=== PATIENT | female | born 1980 | race American Indian/Alaskan Native ===

== ENCOUNTER 2017-12-31 20:11 | Emergency (ER) | payer OTHER ==
[2017-12-31] MEDS ORDERED: Alum-Mag Hydrox-Simethicone Susp (30 mL) PO STA (20:51)
[2017-12-31 20:56] LABS: BASO # 0.1 K/uL (0.0-0.2); BASO % 1.7 % (0.0-2.0); EOS # 0.7 K/uL (0.0-0.7); HEMOGLOBIN 10.3 g/dL (11.0-16.0); LYMPH # 3.7 K/uL (1.0-4.3); LYMPH % 42.6 % (20.0-40.0); MEAN CELL VOLUME 74.2 fL (81.0-99.0); MEAN CORPUSCULAR HEMOGLOBIN 23.9 pg (27.0-31.0); MEAN CORPUSCULAR HGB CONC 32.3 g/dL (33.0-37.0); MEAN PLATELET VOLUME 8.3 fL (7.2-11.7); MONO # 0.6 K/uL (0.0-0.8); NEUT # 3.5 K/uL (1.8-7.0); NEUT % 40.7 % (50.0-75.0); RBC 4.3 Mil/uL (3.80-5.20); RED CELL DISTRIBUTION WIDTH 16.3 % (11.5-14.5); WHITE BLOOD COUNT 8.7 K/uL (4.8-10.8)
[2017-12-31] MEDS ORDERED: Alum-Mag Hydrox-Simethicone Susp (30 mL) ONE (20:57)
[2017-12-31 21:06] LABS: ALBUMIN 4.5 g/dL (3.5-5.0); ALT/SGPT 23 U/L (9-52); AST/SGOT 25 U/L (14-36); BLOOD UREA NITROGEN 12 mg/dL (7-17); CALCIUM 9.2 mg/dl (8.6-10.4); GFR AFRICAN-AMERICAN > 60; GFR NON-AFRICAN AMERICAN > 60; LIPASE 95 U/L (23-300)
[2017-12-31 21:10] LABS: BARBITURATES, UR NEGATIVE (NEGATIVE); BENZODIAZEPINES, UR NEGATIVE (NEGATIVE); OPIATES, UR NEGATIVE (NEGATIVE); PHENCYCLIDINE, UR NEGATIVE (NEGATIVE)
--- NOTE | 2017-12-31 21:46 | C.PDOC ---
Time Seen by Provider: 12/31/17 20:25 Chief Complaint (Nursing): Palpitations History Per: Patient Onset/Duration Of Symptoms: Hrs (since this morning), Intermittent Episodes Current Symptoms Are (Timing): Still Present Quality Of Symptoms: Extra Beats Severity: Moderate Exacerbating Factor(s): Pos: Injestion Of Caffeinated Beverages Additional History Per: Prior Records Past Medical History Reviewed: Historical Data, Nursing Documentation, Vital Signs Vital Signs: Last Vital Signs Temp 98.6 F 12/31/17 20:21 Pulse 86 12/31/17 20:21 Resp 18 12/31/17 20:21 BP 103/70 12/31/17 20:21 Pulse Ox 99 12/31/17 20:21 - Medical History PMH: Asthma Family History: States: Unknown Family Hx - Social History Hx Tobacco Use: No Hx Alcohol Use: No Hx Substance Use: No - Immunization History Hx Tetanus Toxoid Vaccination: No Hx Influenza Vaccination: No Hx Pneumococcal Vaccination: No Review Of Systems Except As Marked, All Systems Reviewed And Found Negative. Constitutional: Negative for: Fever, Weakness Cardiovascular: Positive for: Palpitations. Negative for: Chest Pain Respiratory: Negative for: Shortness of Breath, Hemoptysis Gastrointestinal: Negative for: Vomiting, Abdominal Pain Musculoskeletal: Negative for: Neck Pain, Back Pain, Leg Pain Skin: Negative for: Rash Neurological: Negative for: Weakness, Numbness Physical Exam - Physical Exam Appears: Non-toxic, No Acute Distress Skin: Normal Color, Warm, Dry, No Rash Head: Atraumatic, Normacephalic Eye(s): bilateral: Normal Inspection, PERRL, EOMI Neck: Normal ROM, Supple Cardiovascular: Rhythm Regular Respiratory: No Accessory Muscle Use, Wheezing (scattered intermittent) Gastrointestinal/Abdominal: Soft, No Tenderness Back: No CVA Tenderness Extremity: Normal ROM, No Pedal Edema, No Calf Tenderness Neurological/Psych: Oriented x3, Normal Motor, Normal Sensation ED Course And Treatment - Laboratory Results Result Diagrams: 12/31/17 20:51 12/31/17 20:51 Urine POC: Negative ECG: Interpreted By Me, Viewed By Me ECG Rhythm: Sinus Rhythm ECG Interpretation: No Acute Changes Rate From EC O2 Sat by Pulse Oximetry: 99 Pulse Ox Interpretation: Normal - Radiology CXR: Interpreted by Me, Viewed By Me CXR Interpretation: Yes: No Acute Disease Progress Note: Pt still feels the symptom even though monitor shows NSR. Pt appears to be having muscle twitch in the left lower chest wall area. Pt states she has not been taking her Singulair, but has been using her Albuterol pump more often. On re-exam, lungs clear. Disposition Counseled Patient/Family Regarding: Studies Performed, Diagnosis, Need For Followup - Disposition Disposition: HOME/ ROUTINE Disposition Time: 21:48 Condition: IMPROVED Additional Instructions: Take your Singulair as daily. Follow up with your doctor in 2 days as scheduled. Return to the ER if you develop chest pain, shortness of breath, dizziness, worsening of symptoms or if you have any other concerns. Instructions: Palpitations (DC) Forms: [facility] ([place]inese) - Clinical Impression Clinical Impression: Palpitations
[2017-12-31 22:00] VITALS: BP 111/75; PULSE 74; RESP 16; TEMP 97.5; O2SAT 98
--- NOTE | 2018-01-01 09:32 | RAD ---
HISTORY: Palpitations COMPARISON: No prior. FINDINGS: LUNGS: No active pulmonary disease. PLEURA: No significant pleural effusion identified, no pneumothorax apparent. CARDIOVASCULAR: Normal. OSSEOUS STRUCTURES: No significant abnormalities. VISUALIZED UPPER ABDOMEN: Normal. OTHER FINDINGS: None. IMPRESSION: No active disease.
--- NOTE | 2018-01-01 16:36 | CARD ---
APPROVED REPORT EKG Measurement Heart [id number] <Conclusion> Normal sinus rhythm Normal ECG
== END 2017-12-31 21:59 | disposition home or self-care (01) ==
LOC: C.ER 20:11
DX: R00.2 Palpitations (principal)

== ENCOUNTER 2018-03-13 14:23 | Emergency (ER) | payer OTHER ==
[2018-03-13 14:35] VITALS: RESP 20; TEMP 98.2
[2018-03-13 16:49] LABS: HCG,QUALITATIVE URINE NEGATIVE (NEGATIVE)
[2018-03-13 16:54] LABS: SQUAMOUS EPITHIAL 12 /hpf (0-5); URINE BACTERIA OCC (<OCC); URINE BILIRUBIN NEGATIVE (NEGATIVE); URINE BLOOD 2+ (NEGATIVE); URINE CLARITY Hazy (Clear); URINE COLOR Yellow (YELLOW); URINE GLUCOSE (UA) NORMAL (Normal); URINE LEUKOCYTE ESTERASE TRACE Leu/uL (Negative); URINE PROTEIN NEGATIVE (NEGATIVE); URINE UROBILINOGEN NORMAL mg/dL (0.2-1.0)
[2018-03-13] MEDS ORDERED: Sodium Chloride 0.9% 500 ML IV ONE (17:06)
[2018-03-13 17:38] LABS: BASO % 0.5 % (0.0-2.0); EOS # 0.4 K/uL (0.0-0.7); EOS % 4.2 % (0.0-4.0); HEMOGLOBIN 10.5 g/dL (11.0-16.0); LYMPH # 3.1 K/uL (1.0-4.3); LYMPH % 36.9 % (20.0-40.0); MEAN CELL VOLUME 73.2 fL (81.0-99.0); MEAN CORPUSCULAR HEMOGLOBIN 23.6 pg (27.0-31.0); MEAN CORPUSCULAR HGB CONC 32.3 g/dL (33.0-37.0); MEAN PLATELET VOLUME 7.5 fL (7.2-11.7); MONO # 0.6 K/uL (0.0-0.8); MONO % 7.6 % (0.0-10.0); NEUT # 4.3 K/uL (1.8-7.0); NEUT % 50.8 % (50.0-75.0); NRBC % 0.1 % (0.0-2.0); RBC 4.43 Mil/uL (3.80-5.20); RED CELL DISTRIBUTION WIDTH 15.6 % (11.5-14.5); WHITE BLOOD COUNT 8.5 K/uL (4.8-10.8)
[2018-03-13 17:56] LABS: ALB/GLOB RATIO 1.1 (1.0-2.1); ALBUMIN 4.4 g/dL (3.5-5.0)
[2018-03-13 17:57] LABS: ALT/SGPT 24 U/L (9-52); AST/SGOT 17 U/L (14-36); BLOOD UREA NITROGEN 9 mg/dL (7-17); GFR NON-AFRICAN AMERICAN > 60
--- NOTE | 2018-03-13 18:38 | C.PDOC ---
History Of Present Illness <Nell Hunt - Last Filed: 03/13/18 18:53> <Cabrera Stone - Last Filed: 03/13/18 20:29> 38 year old female presents to the emergency department with complaints of left lower abdominal/pelvic pain and vaginal pain over the last week. Patient reports that the pain is worse today, and is associated with dysparuenia. She denies vaginal bleeding, discharge, nausea, vomiting, and fever. (Nell Hunt) History Per: Patient History/Exam Limitations: no limitations Onset/Duration Of Symptoms: Other (1 week) Current Symptoms Are (Timing): Still Present Quality Of Discomfort: "Pain" Associated Symptoms: Other (lower abdominal pain, pelvic pain, vaginal pain. No vaginal bleeding, vaginal discharge). denies: Fever, Nausea, Vomiting <Nell Hunt - Last Filed: 03/13/18 18:53> <Cabrera Stone - Last Filed: 03/13/18 20:29> Time Seen by Provider: 03/13/18 16:20 Chief Complaint (Nursing): Female Genitourinary Past Medical History Reviewed: Historical Data, Nursing Documentation, Vital Signs - Medical History PMH: Asthma, Hypercholesterolemia Denies: Chronic Kidney Disease Surgical History: No Surg Hx Family History: States: No Known Family Hx - Social History Hx Tobacco Use: No Hx Alcohol Use: No Hx Substance Use: No - Immunization History Hx Tetanus Toxoid Vaccination: No Hx Influenza Vaccination: Yes Hx Pneumococcal Vaccination: No <Nell Hunt - Last Filed: 03/13/18 18:53> Vital Signs: Last Vital Signs Temp 98.2 F 03/13/18 14:30 Pulse 91 H 03/13/18 14:30 Resp 20 03/13/18 14:30 BP 108/71 03/13/18 14:30 Pulse Ox 98 03/13/18 18:53 Review Of Systems Except As Marked, All Systems Reviewed And Found Negative. Constitutional: Negative for: Fever Gastrointestinal: Positive for: Abdominal Pain. Negative for: Nausea, Vomiting Genitourinary: Positive for: Pelvic Pain, Other (vaginal pain). Negative for: Vaginal Discharge, Vaginal Bleeding <Nell Hunt - Last Filed: 03/13/18 18:53> Physical Exam - Physical Exam Appears: Non-toxic, No Acute Distress Skin: Warm, Dry, No Rash Head: Atraumatic, Normacephalic Eye(s): bilateral: Normal Inspection Ear(s): Bilateral: Normal Oral Mucosa: Moist Throat: No Erythema, No Exudate Neck: Normal, Supple Chest: Symmetrical, No Tenderness Cardiovascular: Rhythm Regular, No Friction Rub, No Murmur Respiratory: Normal Breath Sounds, No Rales, No Rhonchi, No Wheezing Gastrointestinal/Abdominal: Bowel Sounds (normal), Soft, Tenderness (left lower abdomen), No Guarding, No Rebound Back: Normal Inspection, No CVA Tenderness Pelvic: Normal External Exam, No Vaginal Bleeding, Vaginal Discharge (white/ yellow discharge), No Cervical Motion Tenderness, No Adnexal Tenderness Extremity: Normal ROM, No Swelling Neurological/Psych: Oriented x3, Normal Speech, Normal Cognition Gait: Steady <Nell Hunt - Last Filed: 03/13/18 18:53> ED Course And Treatment - Laboratory Results Result Diagrams: 03/13/18 17:31 03/13/18 17:31 O2 Sat by Pulse Oximetry: 98 (RA) Pulse Ox Interpretation: Normal Progress Note: Plan: CMP. CBC. NaCl IV Fluids. Toradol 30mg IVP. Urinalysis. US Pelvis/Transvag <Nell Hunt - Last Filed: 03/13/18 18:53> - Laboratory Results Result Diagrams: 03/13/18 17:31 03/13/18 17:31 <Cabrera Stone - Last Filed: 03/13/18 20:29> Disposition - Disposition Disposition Time: 18:49 <Nell Hunt Last Filed: 03/13/18 18:53> Counseled Patient/Family Regarding: Diagnosis - Disposition Disposition Time: 20:25 - POA Present On Arrival: None <Cabrera Stone Last Filed: 03/13/18 20:29> - Disposition Referrals: [facility] [Outside] Disposition: HOME/ ROUTINE Condition: STABLE Prescriptions: Doxycycline Monohydrate 100 mg PO BID #20 capsule Instructions: Pelvic Inflammatory Disease Forms: [facility] (Sl[place]ak) - Clinical Impression Clinical Impression: Vaginitis, PID (acute pelvic inflammatory disease) - PA / EP TECH / Resident Statement MD/DO has reviewed & agrees with the documentation as recorded. - Scribe Statement The provider has reviewed the documentation as recorded by the Scribe (Travis Pruitt) <Nell Hunt - Last Filed: 03/13/18 18:53> <Cabrera Stone - Last Filed: 03/13/18 20:29> - Scribe Statement All medical record entries made by the Scribe were at my direction and personally dictated by me. I have reviewed the chart and agree that the record accurately reflects my personal performance of the history, physical exam, medical decision making, and the department course for this patient. I have also personally directed, reviewed, and agree with the discharge instructions and disposition. (Nell Hunt) Physician Patient Turnover Patient Signed Over To: Cabrera Stone Handoff Comments: Pending ultrasound and disposition <Nell Hunt - Last Filed: 03/13/18 18:53>
[2018-03-13] MEDS ORDERED: Sodium Chloride 0.9% 1,000 ML ONE (18:39)
[2018-03-13] MEDS ORDERED: cefTRIAXone 250 MG, Lidocaine Hydrochloride 1% 1 ML IM ONE (18:51)
--- NOTE | 2018-03-13 18:53 | US ---
Date of service: 03/13/2018 HISTORY: pelvic pain, r/o ovarian torsion COMPARISON: None available. TECHNIQUE: Grayscale, color Doppler and spectral evaluation the pelvis performed transabdominally and transvaginally. FINDINGS: UTERUS: Measures 9.5 x 4.8 x 5.7 cm. Anteverted. Normal in size and appearance. No fibroid or other mass lesion seen. ENDOMETRIUM: Measures 15 mm in diameter. Unremarkable. CERVIX: Complex nabothian cyst measuring 1.1 x 0.8 x 1.0 cm. No cervical abnormality identified. RIGHT OVARY: Measures 2.7 x 1.9 x 1.9 cm. No solid mass. Normal flow. LEFT OVARY: Measures 2.9 x 2.6 x 2.6 cm. Complex cyst measuring 1.7 x 1.6 x 1.7 cm. Small paraovarian cyst measuring 1.0 x 0.8 x 1.0 cm. No solid mass. Normal flow. FREE FLUID: Small amount of fluid noted in the cul-de-sac. OTHER FINDINGS: None. IMPRESSION: Unremarkable pelvic ultrasound. Symmetric bilateral ovarian size and flow.
[2018-03-13 20:45] VITALS: BP 132/65; PULSE 92; O2SAT 100
== END 2018-03-13 20:45 | disposition home or self-care (01) ==
LOC: C.ER 14:23
DX: N76.0 Acute vaginitis (principal); N73.0 Acute parametritis and pelvic cellulitis
CPT/HCPCS: 76830; 76856; 80053; 81001; 84703; 85025; 96361; 96372; 96374; 99285; J0696; J1885; J7040